=== PATIENT | female | born 1975 | race Caucasian/White ===

== ENCOUNTER 2025-07-29 08:28 | Emergency (ER) | payer OTHER ==
[~2025-07-29] VITALS: Ht 162.6 cm; Wt 77.3 kg
[2025-07-29 08:35] VITALS: TEMP 96.9
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
[2025-07-29 09:04] VITALS: RESP 16
[2025-07-29] MEDS: HYDROcodone/acetaminophen 5mg/325mg tablet PO ONE (09:04)
--- NOTE | 2025-07-29 09:11 | RADIOLOGY REPORT ---
[facility] EXAMINATION: DI RIBS,UNILAT INDICATION: RIB PAIN COMPARISON: None TECHNIQUE: Frontal view of the chest and <<> right > views of the << right >> ribs history FINDINGS: No focal consolidation, pleural effusion or significant pneumothorax. Normal cardiomediastinal silhou ette. Right 6th rib fracture, nondisplaced IMPRESSION: 1. Right 6th rib fracture
[2025-07-29] MEDS ORDERED: HYDR-3965 PO (09:34)
[2025-07-29 09:51] VITALS: BP 118/68; PULSE 76; O2SAT 98
== END 2025-07-29 09:50 | disposition home or self-care (01) ==
LOC: ER 08:29
DX: S22.31XA Fracture of one rib, right side, initial encounter for closed fracture (principal); X58.XXXA Exposure to other specified factors, initial encounter; Y93.89 Activity, other specified; Y92.89 Other specified places as the place of occurrence of the external cause; Y99.8 Other external cause status
CPT/HCPCS: 71100; 99283